=== PATIENT | male | born 1955 | race Caucasian/White ===

== ENCOUNTER → 2024-03-02 13:40 | Outpatient (REF) | payer MEDICARE, OTHER, SELFPAY | LOC: EMG 13:40 | PROVIDERS: ATTENDING PHYSICIAN Family Medicine | DX: R25.1 Tremor, unspecified (principal); R20.0 Anesthesia of skin; G56.03 Carpal tunnel syndrome, bilateral upper limbs | CPT/HCPCS: 95886; 95911 ==